=== PATIENT | male | born 1980 | race Two or more races ===

== ENCOUNTER 2017-01-10 09:08 | Emergency (ER) | payer OTHER ==
[~2017-01-10] VITALS: Ht 170.2 cm; Wt 84.4 kg
[2017-01-10 09:27] VITALS: BP 131/84
[2017-01-10] MEDS ORDERED: KETOROLAC TROMETHAMINE 60 MG/2 ML INJ. IM ONE (10:00)
--- NOTE | 2017-01-10 10:29 | PHYS DOC ---
Past Medical History Past Medical History: No Pertinent History Past Surgical History: Tonsillectomy Alcohol Use: None Drug Use: None Adult General Chief Complaint Chief Complaint: CHEST PAIN HPI HPI Patient is a 36 year old male who presents with chest pain, bilateral, cough, pain worsens with movement, deep inspiration and cough. Denies fevers. States it worsens with leaning forward. Started at 10pm yesterday, constant in nature. No h/o CAD/PE/DVT/prolonged immobilization. Pt denies family h/o CAD. Attempted a "pain pill" without relief of symptoms but doesn't know what the medicine was. PCP is Dr. Alonzo Review of Systems Review of Systems Constitutional: Denies fever or chills [] Eyes: Denies change in visual acuity, redness, or eye pain [] HENT: Denies nasal congestion or sore throat [] Respiratory: Denies shortness of breath [] Cardiovascular: No additional information not addressed in HPI [] GI: Denies abdominal pain, nausea, vomiting, bloody stools or diarrhea [] : Denies dysuria or hematuria [] Musculoskeletal: Denies back pain or joint pain [] Integument: Denies rash or skin lesions [] Neurologic: Denies headache, focal weakness or sensory changes [] Current Medications Current Medications Current Medications Medications (Trade) Dose Ordered Sig/Javan Start Time Stop Time Status Last Admin Dose Admin Ketorolac Tromethamine (Toradol Im) 60 mg 1X ONCE 01/10/17 10:00 01/10/17 10:01 DC 01/10/17 10:03 60 MG Allergies Allergies Allergies Coded Allergies Type Severity Reaction Last Updated Verified No Known Drug Allergies 03/09/14 No Physical Exam Physical Exam Constitutional: Well developed, well nourished, no acute distress, non-toxic appearance. [] HENT: Normocephalic, atraumatic, bilateral external ears normal, oropharynx moist, no oral exudates, nose normal. [] Eyes: PERRLA, EOMI, conjunctiva normal, no discharge. [] Neck: Normal range of motion, no tenderness, supple, no stridor. [] Cardiovascular:Heart rate regular with regular rhythm, no murmur, rubs or gallops [] Lungs & Thorax: Bilateral breath sounds clear to auscultation, no wheeze or crackles. TTP along left lateral chest wall that reproduces pain. No crepitus Abdomen: Bowel sounds normal, soft, no tenderness, no masses, no pulsatile masses. [] Skin: Warm, dry, no erythema, no rash. [] Back: No tenderness, no CVA tenderness. [] Extremities: No tenderness, no cyanosis, no clubbing, ROM intact, no edema. [] Neurologic: Alert and oriented X 3, normal motor function, normal sensory function, no focal deficits noted. [] Psychologic: Affect normal, judgement normal, mood normal. [] Current Patient Data Vital Signs Vital Signs Date Time Temp Pulse Resp B/P Pulse Ox O2 Delivery O2 Flow Rate FiO2 01/10/17 09:27 98.5 69 18 131/84 100 Room Air 98.5 Lab Values Laboratory Tests Test 01/10/17 09:51 01/10/17 09:53 POC Troponin I 0.00ng/ml (<0.08) POC Hemoglobin 17.0g/dL (14-18) POC Hematocrit 50% (37-52) POC Sodium 142mmol/L (135-145) POC Potassium 4.0mmol/L (3.5-5.0) POC Chloride 104mmol/L (98-110) POC Total CO2 26mmol/L (23-32) Anion Gap 17mmol/L (6-14) H POC Blood Urea Nitrogen 12mg/dL (8-26) POC Creatinine 0.8mg/dL (0.5-1.4) Glucose Level 83mg/dL (70-99) POC Ionized Calcium (Jorge) 1.19mmol/L (1.13-1.32) Laboratory Tests 01/10/17 09:53 EKG EKG 76 bpm, sinus, normal axis, normal intervals, J-point elevation in 2, 3, aVF, compared with previous EKG on March 09, 2014 and there is no acute change appreciated, interpreted by me [] Radiology/Procedures Radiology/Procedures CXR: Indication chest pain. Cough. PA and lateral views of the chest were obtained and are compared to a single view examination 03/09/2014. The level of inspiratory effort is slightly suboptimal. Heart size and pulmonary vessels are within normal limits. A focal infiltrate is not seen. Significant pleural fluid is not present and there is no pneumothorax. IMPRESSION: No acute finding apparent in the chest Course & Med Decision Making Course & Med Decision Making Pertinent Labs and Imaging studies reviewed. (See chart for details) Patient given IM Toradol for pain. Chest x-ray and EKG performed, i-STAT troponin and BMP within normal limits. No acute findings on ED visit. Pt is appearing more comfortable. Recommend scheduled ibuprofen, f/u with PCP, return precautions given. Dragon Disclaimer Dragon Disclaimer This electronic medical record was generated, in whole or in part, using a voice recognition dictation system. Departure Departure Impression: Primary Impression: Chest pain Disposition: HOME, SELF-CARE Condition: STABLE Referrals: AYDEE ALONZO MD (PCP) Scripts Ibuprofen 800 Mg [id number] Mg PO PRN TID PRN PAIN #20 TAB take with food or milk to avoid upsetting stomach Prov:ANA NEWMAN MD 01/10/17 ANA NEWMAN MD January 10, 2017 10:29
[2017-01-10] MEDS ORDERED: IBUP-1060 PO (10:48)
--- NOTE | 2017-01-10 10:51 | EKG ---
[facility] [address] [place] [address] Test Date: 2017-01-10 Test Time: 09:28:39 Pat Name: MEAGAN CARTER Department: Room: Gender: M Help Desk Operator: : 1980 Requested By: ANA NEWMAN Order Number: [id number] Reading MD: Kaylah Bowman Measurements Intervals [place] Rate: 76 P: 0 AR: 160 QRS: 29 QRSD: 90 T: 47 QT: 356 QTc: 400 Interpretive Statements SINUS RHYTHM NORMAL EKG Electronically Signed On 01-10-2017 20:51:06 CDT by Kaylah Bowman
== END 2017-01-10 10:56 | disposition home or self-care (01) ==
LOC: ER 09:08
DX: R07.9 Chest pain, unspecified (principal); R05 Cough
CPT/HCPCS: 71020; 80047; 84484; 93005; 96372; 99284; J1885

== ENCOUNTER 2017-05-24 18:10 | Emergency (ER) | payer OTHER ==
[~2017-05-24 18:10] MED LIST: IBUP-1060 PO
[2017-05-24 19:23] VITALS: BP 124/78
[2017-05-24] MEDS ORDERED: ACETAMINOPHEN 500 MG TABLET PO ONE (19:30)
[2017-05-24] MEDS ORDERED: LIDOCAINE 2% VISCOUS 15 ML SOLUTION. SWSW ONE (19:30)
[2017-05-24 19:59] LABS: BILIRUBIN,URINE NEGATIVE (NEG); GLUCOSE,URINE NEGATIVE (NEG); NITRITE,URINE NEGATIVE (NEG); PH,URINE 5.5; PROTEIN,URINE NEGATIVE (NEG-TRACE); UROBILINOGEN,URINE 0.2 mg/dL (0.2 mg/dL)
[2017-05-24 20:09] LABS: BACTERIA,URINE 0 /HPF (0-FEW); RBC,URINE 0 /HPF (0-2); SQUAMOUS EPITHELIAL CELL,UR OCC /LPF; WBC,URINE 0 /HPF (0-4)
[2017-05-24] MEDS ORDERED: AMOXICILLIN 250 MG CAPSULE. PO ONE (21:00)
[2017-05-24] MEDS ORDERED: KETOROLAC 60 MG/2 ML INJ. IM ONE (21:00)
[2017-05-24] MEDS ORDERED: predniSONE 20 MG TABLET PO ONE (21:00)
--- NOTE | 2017-05-24 21:09 | PHYS DOC ---
Past Medical History Past Medical History: No Pertinent History Past Surgical History: No Surgical History, Tonsillectomy Alcohol Use: None Drug Use: None Adult General Chief Complaint Chief Complaint: FEVER HPI HPI Patient is a 36 year old male who presents complaining of sore throat, body aches, subjective fevers, back ache, dysuria, for 1-7 days. Patient denies any coughing or congestion. Patient is Setswana speaking and can speak some Sami and the daughter is in the room interpreting. Review of Systems Review of Systems Constitutional: Subjective fevers and body aches Eyes: Denies change in visual acuity, redness, or eye pain [] HENT:sore throat denies any congestion Respiratory: Denies cough or shortness of breath [] Cardiovascular: No additional information not addressed in HPI [] GI: Denies abdominal pain, nausea, vomiting, bloody stools or diarrhea [] : Dysuria Musculoskeletal: Denies back pain or joint pain [] Integument: Denies rash or skin lesions [] Neurologic: Denies headache, focal weakness or sensory changes [] Endocrine: Denies polyuria or polydipsia [] Current Medications Current Medications Current Medications Medications (Trade) Dose Ordered Sig/[facility] Start Time Stop Time Status Last Admin Dose Admin Acetaminophen (Tylenol) 1,000 mg 1X ONCE 05/24/17 19:30 05/24/17 19:31 DC 05/24/17 19:34 1,000 MG Amoxicillin (Amoxil) 1,000 mg 1X ONCE 05/24/17 21:00 05/24/17 21:01 DC Ketorolac Tromethamine (Toradol Im) 60 mg 1X ONCE 05/24/17 21:00 05/24/17 21:01 DC Lidocaine HCl (Viscous Lidocaine) 15 ml 1X ONCE 05/24/17 19:30 05/24/17 19:31 DC 05/24/17 19:34 15 ML Prednisone (Prednisone) 60 mg 1X ONCE 05/24/17 21:00 05/24/17 21:01 DC Allergies Allergies Allergies Coded Allergies Type Severity Reaction Last Updated Verified No Known Drug Allergies 03/09/14 No Physical Exam Physical Exam Constitutional: Well developed, well nourished, no acute distress, non-toxic appearance. [] HENT: Normocephalic, atraumatic, bilateral external ears normal, oropharynx moist, no oral exudates, nose normal. [] Posterior pharynx is mildly injected Eyes: PERRLA, EOMI, conjunctiva normal, no discharge. [] Neck: Normal range of motion, no tenderness, supple, no stridor. [] Cardiovascular:Heart rate regular rhythm, no murmur [] Lungs & Thorax: Bilateral breath sounds clear to auscultation [] Abdomen: Bowel sounds normal, soft, no tenderness, no masses, no pulsatile masses. [] Skin: Warm, dry, no erythema, no rash. [] Back: No tenderness, no CVA tenderness. [] Extremities: No tenderness, no cyanosis, no clubbing, ROM intact, no edema. [] Neurologic: Alert and oriented X 3, normal motor function, normal sensory function, no focal deficits noted. [] Psychologic: Affect normal, judgement normal, mood normal. [] Current Patient Data Vital Signs Vital Signs Date Time Temp Pulse Resp B/P (MAP) Pulse Ox O2 Delivery O2 Flow Rate FiO2 05/24/17 19:23 99.6 108 20 93 Room Air 99.6 Lab Values Laboratory Tests Test 05/24/17 19:35 Urine Collection Type Unknown Urine Color Yellow Urine Clarity Clear Urine pH 5.5 Urine Specific Brewer 1.015 Urine Protein Negative mg/dL (NEG-TRACE) Urine Glucose (UA) Negative mg/dL (NEG) Urine Ketones (Stick) Negative mg/dL (NEG) Urine Blood Negative (NEG) Urine Nitrite Negative (NEG) Urine Bilirubin Negative (NEG) Urine Urobilinogen Dipstick 0.2 mg/dL (0.2 mg/dL) Urine Leukocyte Esterase Negative (NEG) Urine RBC 0 /HPF (0-2) Urine WBC 0 /HPF (0-4) Urine Squamous Epithelial Cells Occ /LPF Urine Bacteria 0 /HPF (0-FEW) EKG EKG [] Radiology/Procedures Radiology/Procedures [] Course & Med Decision Making Course & Med Decision Making Pertinent Labs and Imaging studies reviewed. (See chart for details) This is a 36-year-old male patient presenting to the ED with multiple complaints including body aches fever or sore throat. Patient's temperature in the ED is 99.6 history of test is negative. Patient has history of tonsillitis/ pharyngitis. Patient was discharged with lidocaine viscous, amoxicillin, prednisone, and Ultram. Instructed to follow-up with his own PCP in 1-2 weeks. Genoveva Disclaimer Dragon Disclaimer This electronic medical record was generated, in whole or in part, using a voice recognition dictation system. Departure Departure Impression: Primary Impression: Pharyngitis, acute Additional Impression: Fever Disposition: 01 HOME, SELF-CARE Condition: STABLE Referrals: AYDEE ALONZO MD (PCP) follow up with your doctor in 1-3 days Patient Instructions: Fever, Adult, Viral and Bacterial Pharyngitis Additional Instructions: You were seen with symptoms consistent of pharyngitis. You were put on antibiotics, ensure you complete them. Take the rest of the prescribed pain medicines as ordered. Follow-up with your doctor in 1-2 weeks. Ensure you take Tylenol every 4 hours and Motrin every 6 hours as needed for fever. Push fluids. Use saltwater gargles as needed. Scripts Tramadol Hcl (ULTRAM) 50 Mg Tablet 1 TAB PO Q6HRS, #30 TAB Prov: VASILE HESTER APRN 05/24/17 Amoxicillin (AMOXICILLIN) 875 Mg Tablet 1 TAB PO BID, #20 TAB Prov: VASILE HESTER APRN 05/24/17 Prednisone (PREDNISONE) 50 Mg Tablet 1 TAB PO DAILY, #4 TAB Prov: VASILE HESTER APRN 05/24/17 Problem Qualifiers Primary Impression: Pharyngitis, acute Pharyngitis/tonsillitis etiology: unspecified etiology Qualified Codes: J02.9 - Acute pharyngitis, unspecified Additional Impression: Fever Fever type: unspecified Qualified Codes: R50.9 - Fever, unspecified VASILE HESTER APRN May 24, 2017 21:09
[2017-05-24] MEDS ORDERED: TRAM-48 PO (21:11)
[2017-05-24] MEDS ORDERED: PRED50TA PO (21:11)
[2017-05-24] MEDS ORDERED: AMOX875T PO (21:11)
[2017-05-25 08:35] LABS: NEGATIVE OBC STREP NEG; POSITIVE OBC STREP POS
== END 2017-05-24 21:30 | disposition home or self-care (01) ==
LOC: ER 18:10
DX: J02.9 Acute pharyngitis, unspecified (principal); R50.9 Fever, unspecified; M79.1 Myalgia; R30.0 Dysuria; M54.89 Other dorsalgia; Z90.89 Acquired absence of other organs
CPT/HCPCS: 81001; 87070; 87880; 96372; 99284; J1885; J7512